=== PATIENT | female | born 1990 | race Caucasian/White ===

== ENCOUNTER 2024-07-17 08:40 | Emergency (ER) | payer BC, SELFPAY ==
--- NOTE | ~2024-07-17 | XR_ITS ---
Clinical Indication: Cough PA and lateral views of the chest: Comparison: None Findings: The lungs are clear, without evidence of focal consolidation or pleural effusion. Cardiome diastinal silhouette is within normal limits. Bones and soft tissues are unremarkable. Impression: Normal chest. Reviewed, dictated and finalized at location . Impression: Normal chest.
[2024-07-17 08:48] VITALS: BP 120/66; PULSE 65; RESP 16; TEMP 36.8; O2SAT 100
--- NOTE | 2024-07-17 09:01 | ED.URI ---
HPI - URI/Sore Throat General Chief Complaint: Upper Respiratory Infection Stated Complaint: Chest Congestion/Cough Time Seen by Provider: 07/17/24 09:01 Source: patient Mode of arrival: ambulatory Limitations: no limitations History of Present Illness HPI Narrative: 34-year-old female presents with complaint of cough, chest congestion for 3-4 days. Afebrile. No chest pain or shortness of breath. 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 Patient does not want COVID testing today. Taking [id number] medications to treat her symptoms. All systems reviewed and negative except as noted above. Related Data Home Medications Medication Instructions Recorded Confirmed L norgest/E estradiol-E estrad See Rx Instructions .Route .COMPLEX 07/17/24 07/17/24 0.15 mg-30 mcg (84)/10 mcg(7) tabs,3mos ([place]) clonazepam 0.5 mg tablet See Rx Instructions .Route .COMPLEX 07/17/24 07/17/24 fluoxetine 20 mg capsule 20 mg PO DAILY 07/17/24 07/17/24 trazodone 50 mg tablet 50 mg PO DAILY 07/17/24 07/17/24 Allergies Allergy/AdvReac Type Severity Reaction Status Date / Time Sulfa (Sulfonamide Allergy Unknown Verified 07/17/24 09:38 Antibiotics) Review of Systems Review of Systems: CONSTITUTIONAL: Denies fever, chills, or sweats. EYES: Denies visual changes, redness, or discharge. ENT: reports rhinorrhea, congestion. Denies sore throat, or otalgia. CARDIOVASCULAR: Denies chest pain, palpitations, or edema. RESPIRATORY: Reports cough. Denies dyspnea. GASTROINTESTINAL: Denies abdominal pain, nausea, vomiting, or diarrhea. GENITOURINARY: Denies dysuria or hematuria. SKIN: Denies rash or itching. MUSCULOSKELETAL: Denies back pain, joint pain, or myalgia. NEUROLOGIC: Denies headache, numbness, or weakness. PSYCHIATRIC: Denies anxiety or depression. All other systems reviewed are negative, except as documented in HPI. PMFSH Comments At time of signature, agree with nursing past medical, surgical, social and family history. There is no relevant family history pertinent to the presenting complaint. Exam Narrative: GENERAL: This is a well-nourished, well-developed patient, in no apparent distress. HEAD: normocephalic, atraumatic. EYES: PERRL. Sclera clear/white. Vision is grossly intact. EARS: External ears normal, auditory canals clear and without drainage, TMs normal without perforation. Hearing grossly intact. NOSE: External nose normal with no obvious nasal discharge, nares without redness, no rhinorrhea. THROAT: Mucous membranes moist, posterior pharynx clear. NECK: Neck supple, non-tender without lymphadenopathy, masses or thyromegaly. CARDIOVASCULAR: Regular rate and rhythm without murmurs, gallops, or rubs. RESPIRATORY: mildly coarse throughout all lung pagan On expiration. Breath sounds equal bilaterally. No wheezes, rales, or rhonchi. SKIN: warm, Dry, intact with no suspicious lesions or rash, good texture and turgor. NEURO: awake, alert, and oriented to person, place and time. There were no obvious focal neurologic abnormalities. EXTREMITIES: No joint tenderness, effusion, or edema noted. Course Course Level of Care: Express Care Visit Vital Signs Vital signs: Vital Signs Temperature 36.8 C 07/17/24 08:48 Pulse Rate 65 07/17/24 08:48 Respiratory Rate 16 07/17/24 08:48 Blood Pressure 120/66 07/17/24 08:48 Pulse Oximetry 100 07/17/24 08:48 Oxygen Delivery Room Air 07/17/24 08:48 Temperature 36.8 C 07/17/24 08:48 Pulse Rate 65 07/17/24 08:48 Respiratory Rate 16 07/17/24 08:48 Blood Pressure 120/66 07/17/24 08:48 Pulse Oximetry 100 07/17/24 08:48 Oxygen Delivery Room Air 07/17/24 08:48 reviewed MDM - URI/Sore Throat MDM Narrative Medical decision making narrative: discussed x-ray results with patient. Negative for pneumonia. Will treat patient with albuterol inhaler, prednisone
== END 2024-07-17 09:45 | disposition home or self-care (01) ==
PROVIDERS: Emergency Provider Nurse Practitioner Family; PCP Family Medicine
DX: J06.9 Acute upper respiratory infection, unspecified (principal)
CPT/HCPCS: 71046; 99213; G0463